=== PATIENT | female | born 1990 | race Caucasian/White ===

== ENCOUNTER 2019-07-15 08:40 | Inpatient (IN) | payer OTHER ==
[2019-07-15 08:58] VITALS: BMI 26.4
--- NOTE | 2019-07-15 09:28 | HP ---
COWS - Scale Resting Pulse: 1= [place] 81-100 Sweatin= Chills/Flushing Restless Observation: 1= Difficult to Sit Still Pupil Size: 1= Pupils >than Normal Bone or Joint Aches: 2= Severe Diffuse Aches Runny Nose/ Eye Tearin= Runny Nose/Eyes (qualify for detox) GI Upset > 30mins: 1= Stomach Cramp Tremor Observation: 1= Tremor [place], Not Seen Yawning Observation: 1= 1-2x During Session Anxiety or Irritability: 1=Feels Anxious/Irritable Goose Flesh Skin: 0=Smooth Skin COWS Score: 12 CIWA Score - Admission Criteria OASAS Guidelines: Admission for Medically Managed Detox: Requires at least one of the followin. CIWA greater than 12 2. Seizures within the past 24 hours 3. Delirium tremens within the past 24 hours 4. Hallucinations within the past 24 hours 5. Acute intervention needed for co occurring medical disorder 6. Acute intervention needed for co occurring psychiatric disorder 7. Severe withdrawal that cannot be handled at a lower level of care (continued vomiting, continued diarrhea, abnormal vital signs) requiring intravenous medication and/or fluids 8. Admission [facility] Chief Complaint: " I want heroin detox" Allergies/Adverse Reactions: Allergies Allergy/AdvReac Type Severity Reaction Status Date / Time No Known Allergies Allergy Verified 07/15/19 08:52 History of Present Illness: 29 year old female with opioid dependence. She started 3 weeks ago due to an addiction to pain pills. She relapsed 3 weeks. She had become addicted after surgery tonsillectomy and sinus surgery 4 years ago. She switched to heroin only 3 weeks ago. She is using 3 bags of heroin 3-4 times per week. She denies seizures from withdrawals and other complications. PMHx:None PsurgHx: C/S 1 year ago All: None SHx: vape, denies marijuana, cocaine, K2 or Metamphetamines. Urine positive for fentanyl and opiates. Prior admission to detox 2 years ago. Exam Limitations: No Limitations - Ebola screening Have you traveled outside of the country in the last 21 days: No ([place]) Have you had contact with anyone from an Ebola affected area: No Have you been sick,other than usual withdrawal symptoms: No Do you have a fever: No - Review of Systems Constitutional: Chills, Loss of Appetite EENT: reports: No Symptoms Reported Respiratory: reports: No Symptoms reported Cardiac: reports: No Symptoms Reported GI: reports: Abdominal cramping : reports: No Symptoms Reported Musculoskeletal: reports: Muscle Pain Integumentary: reports: No Symptoms Reported Neuro: reports: No Symptoms reported Endocrine: reports: No Symptoms Reported Hematology: reports: No Symptoms Reported Psychiatric: reports: Agitated, Anxious Patient History - Patient Medical History Hx Anemia: No Hx Asthma: No Hx Chronic Obstructive Pulmonary Disease (COPD): No Hx Cancer: No Hx Cardiac Disorders: No Hx Congestive Heart Failure: No Hx Hypertension: No Hx Hypercholesterolemia: No Hx Pacemaker: No HX Cerebrovascular Accident: No Hx Seizures: No Hx Dementia: No Hx Diabetes: No Hx Gastrointestinal Disorders: No Hx Liver Disease: No Hx Genitourinary Disorders: No Hx Sexually Transmitted Disorders: No Hx Renal Disease (ESRD): No Hx Thyroid Disease: No Hx Human Immunodeficiency Virus (HIV): No (last tested 2 years ago) Hx Hepatitis C: No Hx Depression: No Hx Suicide Attempt: No Hx Bipolar Disorder: No Hx Schizophrenia: No - Patient Surgical History Past Surgical History: Yes Hx Neurologic Surgery: No Hx Cataract Extraction: No Hx Cardiac Surgery: No Hx Lung Surgery: No Hx Breast Surgery: No Hx Breast Biopsy: No Hx Abdominal Surgery: No Hx Appendectomy: No Hx Cholecystectomy: No Hx Genitourinary Surgery: No Hx Section: Yes Hx Orthopedic Surgery: No Hx Hysterectomy: No Anesthesia Reaction: No - PPD History Previous Implant?: Yes Documented Results: Negative w/o proof Implanted On Prior [facility] Admission?: No Date: 06/27/16 Results: 00mm PPD to be Administered?: No - Reproductive History Patient is a Female of Child Bearing Age (11 -55 yrs old): Yes Last Menstrual Period: 07/01/19 Patient : No - Smoking Cessation Smoking history: Former smoker Have you smoked in the past 12 months: No Aproximately how many cigarettes per day: 20 If you are a former smoker, when did you quit?: 1 year ago Hx Chewing Tobacco Use: No Initiated information on smoking cessation: No - Substances abused Heroin Substance route: Inhalation Frequency: 3-6 times per week Amount used: 3BAGS Age of first use: 29 Date of last use: 07/14/19 Family Disease History - Family Disease History Family Disease History: Heart Disease: Father (4 AZ's), Other: Mother (mental illness), Brother (1 brother alive and well), Sister (1 sister alive and well) Admission Physical Exam [facility] - Vital Signs Vital Signs: Vital Signs - 24 hr 07/15/19 08:51 Temperature 99.0 F Pulse Rate 86 Respiratory 18 Rate Blood Pressure 136/85 - Physical General Appearance: Yes: Mild Distress HEENTM: Yes: EOMI, Hearing grossly Normal, Normal ENT Inspection, Normocephalic , BIN, Pharynx Normal Respiratory: Yes: Chest Non-Tender, Lungs Clear, Normal Breath Sounds, No Respiratory Distress, No Accessory Muscle Use Neck: Yes: No masses,lesions,Nodules, Trachea in good position Breast: Yes: Breast Exam Deferred Cardiology: Yes: Regular Rhythm, S1, S2, Tachycardia Abdominal: Yes: Non Tender, Flat, Soft, Increased Bowel Sounds Genitourinary: Yes: Within Normal Limits Back: Yes: Normal Inspection Musculoskeletal: Yes: full range of Motion, Gait Steady Extremities: Yes: Normal Capillary Refill, Normal Inspection, Normal Range of Motion, Non-Tender Neurological: Yes: nurse sane II-XII NML intact, Fully Oriented, Alert, Motor Strength 5/5, Normal Mood/Affect, Normal Response Integumentary: Yes: Normal Color, Warm Lymphatic: Yes: Within Normal Limits - Diagnostic (1) Opioid dependence with withdrawal Current Visit: Yes Status: Acute Cleared for Admission [facility] - Detox or Rehab [facility] Level of Care: Medically Managed Detox Regimen/Protocol: Methadone Screened but not Admitted - Documentation of Visit Screened but not Admitted: No Breathalyzer - Breathalyzer Breathalyzer: 0 Vital Signs - Vital Signs Vital signs refused: No Temperature: 0 F Temperature source: Oral Pulse Rate: 86 Respiratory Rate: 18 Blood Pressure: 136/85 BP Location: Left Arm Blood Pressure position: Sitting - Height Height: 5 ft - Weight Weight: 135 lb Weight measurement method: Standing scale - BMI Body Mass Index (BMI): 26.4 - Bowel Function Bowel Movement: No Urine Drug Screen - Test Device Lot number: [id number] Expiration date: 04/25/21 - Control Is test valid?: Yes - Results Drug screen NEGATIVE: No Urine drug screen results: FEN-Fentanyl, MOP-Opiates Inpatient Rehab Admission - Rehab Decision to Admit Inpatient rehab admission?: No
[2019-07-15] MEDS ORDERED: MAGNESIUM HYDROX 2400MG/30ML ORAL SUSPENSION 30 ML CUP PO PRN (09:39)
[2019-07-15] MEDS ORDERED: MENTHOL/PHENOL 1 EACH UD MM PRN (09:39)
[2019-07-15] MEDS ORDERED: MAGNESIUM CITRATE 300 ML BOTTLE PO PRN (09:39)
[2019-07-15] MEDS ORDERED: BISMUTH SUBSALICYLATE 262 MG/15 ML BTL PO PRN (09:39)
[2019-07-15] MEDS ORDERED: ACETAMINOPHEN 325 MG TABLET (FP) PO PRN ×2 (09:39)
[2019-07-15] MEDS ORDERED: cloNIDine HCL 0.1 MG TABLET PO PRN (09:39)
[2019-07-15] MEDS ORDERED: MAG HYDROX/AL HYDROX/SIMETH 30 ML UNIT-DOSE CUP PO PRN (09:39)
[2019-07-15] MEDS ORDERED: IBUPROFEN 400 MG TABLET (FP) PO PRN (09:39)
[2019-07-15] MEDS ORDERED: METHADONE HCL 10 MG TABLET (FOR DETOX USE ONLY) PO ONE (09:55)
[2019-07-15] MEDS: PRENATAL VITAMINS W/ FOLIC ACID TABLET (FP) PO SCH (10:34)
[2019-07-15 12:16] LABS: HEMATOCRIT 28.2 % (32.4-45.2); HEMOGLOBIN 8.9 GM/dL (10.7-15.3); MCH 22.3 pg (25.7-33.7); MCHC 31.6 g/dl (32.0-36.0); MEAN CELL VOLUME 70.4 fl (80-96); MEAN PLT VOLUME 7.6 fl (7.5-11.1); PLATELET COUNT 359 K/MM3 (134-434); WHITE BLOOD COUNT 7.5 K/mm3 (4.0-10.0)
[2019-07-15 12:20] LABS: ALBUMIN 3.8 g/dl (3.4-5.0); BILIRUBIN,TOTAL 0.4 mg/dL (0.2-1); BLOOD UREA NITROGEN 9.2 mg/dL (7-18); CALCIUM 9.8 mg/dL (8.5-10.1); CREATININE 0.6 mg/dL (0.55-1.3); TOT PROT 6.8 g/dl (6.4-8.2)
[2019-07-15] MEDS: hydrOXYzine PAMOATE 25 MG CAPSULE (FP) PO PRN ×2 (13:44→22:27)
[2019-07-15] MEDS ORDERED: ONDANSETRON *ODT* 4 MG TABLET SL PRN (14:22)
[2019-07-15] MEDS: NICOTINE 21 MG/24 HOURS TOPICAL PATCH TD SCH (14:46)
[2019-07-15] MEDS: FERROUS SO4 325 MG TABLET (FP) PO SCH (17:49)
[2019-07-15] MEDS: METHOCARBAMOL 500 MG TABLET PO PRN (22:27)
[2019-07-15] MEDS: MELATONIN 5 MG TABLETS PO PRN (22:27)
[2019-07-15] MEDS: THIAMINE HCL 100 MG TABLET (FP) PO SCH (22:27)
[2019-07-16] MEDS: FERROUS SO4 325 MG TABLET (FP) PO SCH ×3 (07:53→17:06)
[2019-07-16] MEDS ORDERED: METHADONE HCL 10 MG TABLET (FOR DETOX USE ONLY) ONE (09:16)
[2019-07-16] MEDS ORDERED: METHADONE HCL 5 MG TABLET (FOR DETOX USE ONLY) ONE (09:16)
[2019-07-16] MEDS ORDERED: METHADONE (DETOX) 20 MG, METHADONE (DETOX) 5 MG PO ONE (10:00)
[2019-07-16] MEDS: PRENATAL VITAMINS W/ FOLIC ACID TABLET (FP) PO SCH (10:40)
[2019-07-16] MEDS: NICOTINE 21 MG/24 HOURS TOPICAL PATCH TD SCH (10:41)
[2019-07-16] MEDS: hydrOXYzine PAMOATE 25 MG CAPSULE (FP) PO PRN ×2 (12:54→19:51)
--- NOTE | 2019-07-16 12:56 | PN ---
BHS COWS - Scale Resting Pulse: 1= [place] 81-100 Sweatin=Flushed/Facial Moisture Restless Observation: 1= Difficult to Sit Still Pupil Size: 0= Normal to Room Light Bone or Joint Aches: 2= Severe Diffuse Aches Runny Nose/ Eye Tearin= Nasal Congestion GI Upset > 30mins: 0= None Tremor Observation of Outstretched Hands: 1= Tremor [place], Not Seen Yawning Observation: 0= None Anxiety or Irritability: 2=Irritable/Anxious Goose Flesh Skin: 0=Smooth Skin COWS Score: 10 BHS Progress Note (SOAP) Subjective: anxiety sweats shakes interrupted sleep body aches Objective: 07/16/19 12:55 Vital Signs Temperature 97.9 F 07/16/19 09:08 Pulse Rate 87 07/16/19 09:08 Respiratory Rate 18 07/16/19 09:08 Blood Pressure 136/83 07/16/19 09:08 O2 Sat by Pulse Oximetry (%) Laboratory Tests 07/15/19 07/15/19 07/15/19 10:00 10:00 10:00 WBC 7.5 RBC 4.00 Hgb 8.9 L Hct 28.2 L MCV 70.4 L MCH 22.3 L MCHC 31.6 L RDW 18.0 H Plt Count 359 MPV 7.6 Sodium 140 Potassium 4.0 Chloride 104 Carbon Dioxide 28 Anion Gap 7 L BUN 9.2 Creatinine 0.6 Est GFR (CKD-EPI)AfAm 140.77 Est GFR (CKD-EPI)NonAf 121.46 Random Glucose 94 Calcium 9.8 Total Bilirubin 0.4 AST 12 L ALT 14 Alkaline Phosphatase 101 Total Protein 6.8 Albumin 3.8 POC Urine HCG, Qual RPR Titer Nonreactive 07/15/19 10:20 WBC RBC Hgb Hct MCV MCH MCHC RDW Plt Count MPV Sodium Potassium Chloride Carbon Dioxide Anion Gap BUN Creatinine Est GFR (CKD-EPI)AfAm Est GFR (CKD-EPI)NonAf Random Glucose Calcium Total Bilirubin AST ALT Alkaline Phosphatase Total Protein Albumin POC Urine HCG, Qual Negative RPR Titer labs noted iron supplement ordered aaox3 ambulating no acute distress Assessment: 07/16/19 12:55 withdrawals Plan: continue detox increase fluids valium 10mg prn
[2019-07-16] MEDS: diazePAM 5 MG TABLET PO PRN ×2 (17:06→22:15)
[2019-07-16] MEDS: THIAMINE HCL 100 MG TABLET (FP) PO SCH (22:15)
[2019-07-16] MEDS: METHOCARBAMOL 500 MG TABLET PO PRN (22:15)
[2019-07-17] MEDS: FERROUS SO4 325 MG TABLET (FP) PO SCH ×3 (08:14→17:17)
[2019-07-17] MEDS ORDERED: METHADONE HCL 10 MG TABLET (FOR DETOX USE ONLY) PO ONE (10:00)
[2019-07-17] MEDS: PRENATAL VITAMINS W/ FOLIC ACID TABLET (FP) PO SCH (10:34)
[2019-07-17] MEDS: NICOTINE 21 MG/24 HOURS TOPICAL PATCH TD SCH (10:34)
--- NOTE | 2019-07-17 10:53 | PN ---
BHS COWS - Scale Resting Pulse: 1= [place] 81-100 Sweatin= Chills/Flushing Restless Observation: 0= Sits Still Pupil Size: 0= Normal to Room Light Bone or Joint Aches: 1= Mild Discomfort Runny Nose/ Eye Tearin= Nasal Congestion GI Upset > 30mins: 0= None Tremor Observation of Outstretched Hands: 1= Tremor [place], Not Seen Yawning Observation: 1= 1-2x During Session Anxiety or Irritability: 1=Feels Anxious/Irritable Goose Flesh Skin: 0=Smooth Skin COWS Score: 7 BHS Progress Note (SOAP) Subjective: little sweats feeling better i want to leave a day earlier if possible Objective: 07/17/19 10:52 Vital Signs Temperature 98.2 F 07/17/19 09:42 Pulse Rate 87 07/17/19 09:42 Respiratory Rate 18 07/17/19 09:42 Blood Pressure 127/81 07/17/19 09:42 O2 Sat by Pulse Oximetry (%) Laboratory Tests 07/15/19 07/15/19 07/15/19 10:00 10:00 10:00 WBC 7.5 RBC 4.00 Hgb 8.9 L Hct 28.2 L MCV 70.4 L MCH 22.3 L MCHC 31.6 L RDW 18.0 H Plt Count 359 MPV 7.6 Sodium 140 Potassium 4.0 Chloride 104 Carbon Dioxide 28 Anion Gap 7 L BUN 9.2 Creatinine 0.6 Est GFR (CKD-EPI)AfAm 140.77 Est GFR (CKD-EPI)NonAf 121.46 Random Glucose 94 Calcium 9.8 Total Bilirubin 0.4 AST 12 L ALT 14 Alkaline Phosphatase 101 Total Protein 6.8 Albumin 3.8 POC Urine HCG, Qual RPR Titer Nonreactive 07/15/19 10:20 WBC RBC Hgb Hct MCV MCH MCHC RDW Plt Count MPV Sodium Potassium Chloride Carbon Dioxide Anion Gap BUN Creatinine Est GFR (CKD-EPI)AfAm Est GFR (CKD-EPI)NonAf Random Glucose Calcium Total Bilirubin AST ALT Alkaline Phosphatase Total Protein Albumin POC Urine HCG, Qual Negative RPR Titer labs noted pt has an order for iron supplement aaox3 ambulating no acute distress will order repeat labs Assessment: 07/17/19 10:54 withdrawal sx Plan: continue detox increase fluids repeat cbc
[2019-07-17] MEDS: diazePAM 5 MG TABLET PO PRN ×3 (11:44→22:21)
[2019-07-17] MEDS: THIAMINE HCL 100 MG TABLET (FP) PO SCH (22:21)
[2019-07-18] MEDS ORDERED: METHADONE HCL 10 MG TABLET (FOR DETOX USE ONLY) ONE (09:25)
[2019-07-18] MEDS ORDERED: METHADONE HCL 5 MG TABLET (FOR DETOX USE ONLY) ONE (09:25)
[2019-07-18] MEDS ORDERED: METHADONE (DETOX) 10 MG, METHADONE (DETOX) 5 MG PO ONE (10:00)
[2019-07-18] MEDS: FERROUS SO4 325 MG TABLET (FP) PO SCH ×3 (10:10→20:13)
[2019-07-18] MEDS: NICOTINE 21 MG/24 HOURS TOPICAL PATCH TD SCH (10:11)
[2019-07-18] MEDS: PRENATAL VITAMINS W/ FOLIC ACID TABLET (FP) PO SCH (10:11)
[2019-07-18] MEDS: diazePAM 5 MG TABLET PO PRN ×3 (10:12→22:19)
[2019-07-18 10:38] LABS: BASO % 0.5 % (0-2.0); EOS % 8.5 % (0-4.5); HEMATOCRIT 28.9 % (32.4-45.2); HEMOGLOBIN 9.1 GM/dL (10.7-15.3); LYMPH % 51.4 % (8-40); MCH 22.2 pg (25.7-33.7); MCHC 31.4 g/dl (32.0-36.0); MEAN CELL VOLUME 70.6 fl (80-96); MEAN PLT VOLUME 7.4 fl (7.5-11.1); MONO % 6.5 % (3.8-10.2); NEUT % 33.1 % (42.8-82.8); PLATELET COUNT 357 K/MM3 (134-434); RBC 4.09 M/mm3 (3.60-5.2); RDW 17.6 % (11.6-15.6); WHITE BLOOD COUNT 6.6 K/mm3 (4.0-10.0)
[2019-07-18] MEDS: hydrOXYzine PAMOATE 25 MG CAPSULE (FP) PO PRN (12:36)
--- NOTE | 2019-07-18 13:16 | PN ---
BHS COWS - Scale Resting Pulse: 1= [place] 81-100 Sweatin= Chills/Flushing Restless Observation: 0= Sits Still Pupil Size: 0= Normal to Room Light Bone or Joint Aches: 1= Mild Discomfort Runny Nose/ Eye Tearin= None GI Upset > 30mins: 0= None Tremor Observation of Outstretched Hands: 0= None Yawning Observation: 0= None Anxiety or Irritability: 2=Irritable/Anxious Goose Flesh Skin: 0=Smooth Skin COWS Score: 5 BHS Progress Note (SOAP) Subjective: anxiety interrupted sleep Objective: 07/18/19 13:13 Vital Signs Temperature 97.7 F 07/18/19 13:10 Pulse Rate 84 07/18/19 13:10 Respiratory Rate 18 07/18/19 13:10 Blood Pressure 131/69 07/18/19 13:10 O2 Sat by Pulse Oximetry (%) Laboratory Tests 07/15/19 07/15/19 07/15/19 10:00 10:00 10:00 WBC 7.5 RBC 4.00 Hgb 8.9 L Hct 28.2 L MCV 70.4 L MCH 22.3 L MCHC 31.6 L RDW 18.0 H Plt Count 359 MPV 7.6 Absolute Neuts (auto) Neutrophils % Lymphocytes % Monocytes % Eosinophils % Basophils % Nucleated RBC % Sodium 140 Potassium 4.0 Chloride 104 Carbon Dioxide 28 Anion Gap 7 L BUN 9.2 Creatinine 0.6 Est GFR (CKD-EPI)AfAm 140.77 Est GFR (CKD-EPI)NonAf 121.46 Random Glucose 94 Calcium 9.8 Total Bilirubin 0.4 AST 12 L ALT 14 Alkaline Phosphatase 101 Total Protein 6.8 Albumin 3.8 POC Urine HCG, Qual RPR Titer Nonreactive TB (QFT) Incubation TB Test (QFT) Nil TB Test (QFT) Mitogen TB Test (QFT) Antigen TB Test (QFT) TB Positive Criteria 07/15/19 07/15/19 07/18/19 10:00 10:20 07:00 WBC 6.6 RBC 4.09 Hgb 9.1 L Hct 28.9 L MCV 70.6 L MCH 22.2 L MCHC 31.4 L RDW 17.6 H Plt Count 357 MPV 7.4 L Absolute Neuts (auto) 2.2 Neutrophils % 33.1 L Lymphocytes % 51.4 H Monocytes % 6.5 Eosinophils % 8.5 H Basophils % 0.5 Nucleated RBC % 0 Sodium Potassium Chloride Carbon Dioxide Anion Gap BUN Creatinine Est GFR (CKD-EPI)AfAm Est GFR (CKD-EPI)NonAf Random Glucose Calcium Total Bilirubin AST ALT Alkaline Phosphatase Total Protein Albumin POC Urine HCG, Qual Negative RPR Titer TB (QFT) Incubation TB Test (QFT) Nil 0.02 TB Test (QFT) Mitogen >10.00 TB Test (QFT) Antigen 0.03 TB Test (QFT) Negative TB Positive Criteria repeated labs very little improvement for her anemia however pt was ordered iron supplement aaox3 ambulating no acute distress 07/18/19 13:14 Assessment: 07/18/19 13:15 mild withdrawal sx Plan: continue detox increase fluids continue with iron supplements d/c in am
[2019-07-18] MEDS: THIAMINE HCL 100 MG TABLET (FP) PO SCH (22:18)
[2019-07-18] MEDS: MELATONIN 5 MG TABLETS PO PRN (22:18)
[2019-07-19] MEDS ORDERED: METHADONE HCL 10 MG TABLET (FOR DETOX USE ONLY) PO ONE ×2 (06:00→10:00)
[2019-07-19 07:57] VITALS: BP 109/72; PULSE 69; TEMP 97.9
--- NOTE | 2019-07-19 13:51 | DS ---
[facility] Detox Discharge Summary Admission Date: 07/15/19 Discharge Date: 07/19/19 - History Present History: Opioid Dependence Additional Comments: Pt is medically cleared and is discharged today. Pt has completed her detox protocol. Pt is encouraged to follow-up with [facility] outpatient program and also to follow-up with her PMD. Pt verbalized understanding. Pt is alert and oriented x3 and in no respiratory distress. Pertinent Past History: H/o opioid use disorder. - Physical Exam Results Vital Signs: Vital Signs Temperature 97.9 F 07/19/19 06:00 Pulse Rate 69 07/19/19 06:00 Respiratory Rate 16 07/19/19 06:00 Blood Pressure 109/72 07/19/19 06:00 O2 Sat by Pulse Oximetry (%) Vital Signs 07/19/19 06:00 Temperature 97.9 F Pulse Rate 69 Respiratory 16 Rate Blood Pressure 109/72 Lab Results WBC 6.6 K/mm3 (4.0-10.0) 07/18/19 07:00 RBC 4.09 M/mm3 (3.60-5.2) 07/18/19 07:00 Hgb 9.1 GM/dL (10.7-15.3) L 07/18/19 07:00 Hct 28.9 % (32.4-45.2) L 07/18/19 07:00 MCV 70.6 fl (80-96) L 07/18/19 07:00 MCHC 31.4 g/dl (32.0-36.0) L 07/18/19 07:00 RDW 17.6 % (11.6-15.6) H 07/18/19 07:00 Plt Count 357 K/MM3 (134-434) 07/18/19 07:00 Sodium 140 mmol/L (136-145) 07/15/19 10:00 Potassium 4.0 mmol/L (3.5-5.1) 07/15/19 10:00 Chloride 104 mmol/L (98-107) 07/15/19 10:00 Carbon Dioxide 28 mmol/L (21-32) 07/15/19 10:00 Anion Gap 7 MMOL/L (8-16) L 07/15/19 10:00 BUN 9.2 mg/dL (7-18) 07/15/19 10:00 Creatinine 0.6 mg/dL (0.55-1.3) 07/15/19 10:00 Random Glucose 94 mg/dL (74-106) 07/15/19 10:00 Calcium 9.8 mg/dL (8.5-10.1) 07/15/19 10:00 Labs noted. Pertinent Admission Physical Exam Findings: withdrawal symptoms. - Treatment Hospital Course: Detox Protocol Followed, Detoxed Safely, Responded well, Discharged Condition Good - Medication Discharge Medications: Ambulatory Orders NK [No Known Home Medication] 07/15/19 - Diagnosis (1) Opioid dependence with withdrawal Status: Acute - AMA Did Patient Leave Against Medical Advice: No BHS COWS - Scale Resting Pulse: 0= [place] 80 or Below Sweatin= No chills or Flushing Restless Observation: 0= Sits Still Pupil Size: 0= Normal to Room Light Bone or Joint Aches: 0= None Runny Nose/ Eye Tearin= None GI Upset > 30mins: 0= None Tremor Observation of Outstretched Hands: 0= None Yawning Observation: 1= 1-2x During Session Anxiety or Irritability: 2=Irritable/Anxious Goose Flesh Skin: 0=Smooth Skin COWS Score: 3
[2019-07-20] MEDS ORDERED: METHADONE HCL 5 MG TABLET (FOR DETOX USE ONLY) PO ONE (06:00)
== END 2019-07-19 08:34 | disposition home or self-care (01) | DRG 897 ==
LOC: YASAS 08:40 → Y6N 09:50
PROVIDERS: ADMIT Surgery; ATTEND Surgery
PROC: HZ2ZZZZ Detoxification Services for Substance Abuse Treatment (ICD-10-PCS; principal; 2019-07-15)
DX: F11.23 Opioid dependence with withdrawal (principal); D64.9 Anemia, unspecified
CPT/HCPCS: 36415; 80053; 81025; 85025; 85027; 86480; 86593